=== PATIENT | female | born 1935 ===

== ENCOUNTER → 2021-04-15 13:22 | Outpatient (ROUT) | payer OTHER, SELFPAY ==
[2021-04-15 13:32] LABS: INR 2.7 (0.9-1.3); Prothrombin Time 31.2 SECONDS (10.1-12.7)
== END ==
PROVIDERS: Visit Provider Emergency Medicine
DX: I10 Essential (primary) hypertension (principal); I48.91 Unspecified atrial fibrillation; G93.40 Encephalopathy, unspecified; K72.10 Chronic hepatic failure without coma; J44.9 Chronic obstructive pulmonary disease, unspecified; N18.4 Chronic kidney disease, stage 4 (severe)
CPT/HCPCS: 85610